=== PATIENT | male | born 1965 | race Caucasian/White ===

== ENCOUNTER 2016-10-17 10:59 | Observation (INO) | payer BC, OTHER ==
[2016-10-17] MEDS ORDERED: Aspirin Low Dose CHEW TAB* 81 MG PO ONE (11:15)
--- NOTE | 2016-10-17 11:56 | RAD ---
INDICATION: Chest pain. LEFT arm pain and tingling. Question pneumonia or CHF. COMPARISON: April 15, 2013 CT abdomen. TECHNIQUE: Dual energy PA and routine lateral views of the chest were obtained. REPORT: Clear lungs and pleural spaces. Negative for pneumothorax. The heart, pulmonary vasculature, and mediastinal contours are unremarkable. Anterior cervical fusion hardware noted. IMPRESSION: No evidence for acute intrathoracic disease.
[2016-10-17 12:04] LABS: Hematocrit 51 % (42-52); Hemoglobin 17.4 g/dl (14.0-18.0); Mean Corpuscular HGB Conc 34 g/dl (31-36); Mean Corpuscular Hemoglobin 32 pg (27-31); Mean Corpuscular Volume 95 fL (80-94); Mean Platelet Volume 9 um3 (7.4-10.4); Red Blood Count 5.39 10^6/ul (4.0-5.4); Red Cell Distribution Width 13 % (10.5-15); White Blood Count 6.7 10^3/ul (3.5-10.8)
[2016-10-17 12:13] LABS: Comments Flag Yes
[2016-10-17 12:15] LABS: Add Diff/Slide Review? Slide Review Added
[2016-10-17 12:31] LABS: ALT 35 U/L (7-52); Alkaline Phosphatase 69 U/L (34-104); BUN/Creatinine Ratio 8.1 (8-20); Blood Urea Nitrogen 8 mg/dL (6-24); CO2 Carbon Dioxide 28 mmol/L (22-32); Chloride 96 mmol/L (101-111); EGFR African American 102.9 (>60); Glucose 89 mg/dL (70-100); Sodium 133 mmol/L (133-145)
[2016-10-17 12:33] LABS: Troponin I 0.01 ng/mL (<0.04)
[2016-10-17 12:57] LABS: Anion Gap 9 mmol/L (2-11)
[2016-10-17] MEDS ORDERED: Ondansetron INJ* 2 MG/ML VIAL IV PRN (14:02)
[2016-10-17] MEDS ORDERED: Ketorolac INJ* 15 MG/ML 1 ML VIAL IV PUSH PRN (14:03)
[2016-10-17] MEDS ORDERED: Morphine INJ* 2 MG/ML 1 ML SYRINGE IV PRN (14:03)
--- NOTE | 2016-10-17 17:08 | HP ---
CC: Dr. Briscoe's replacement at [place]* HISTORY AND PHYSICAL: DATE OF ADMISSION: 10/17/16 CHIEF COMPLAINT: Chest pain. HISTORY OF PRESENT ILLNESS: The patient is a 51-year-old gentleman, who presents to [facility] with chief complaint of chest pain that he has had on and off for months now. However, it has become much worse over the last several days. He feels like something is squeezing in his left side of his chest. At its worst, it is about 8/10 in severity. His left arm can hurt as well from the pain. He has no nausea or vomiting. He denies any clamminess or sweating. He got aspirin in the ER, but that did not help either. The pain actually gets worse initially when he presses on it, but then there is little relief. The pain also improves when he moves his arms around. PAST MEDICAL HISTORY: He has no significant past medical history. MEDICATIONS: He is on no medications. ALLERGIES: He has no known drug allergies. FAMILY HISTORY: Significant for father pancreatic cancer and had heart attack in his early 40s, and mother is alive at 80, has diabetes, and had coronary artery bypass graft surgery. SOCIAL HISTORY: The patient does smoke 1 pack a day, but denies need for nicotine replacement. He drinks 6 to 8 beers a day. No recreational drug use. He is a building maintenance worker. He is . He has 3 children, 2 step children. His , Jocelin Cole, is his healthcare proxy. REVIEW OF SYSTEMS: A 14-point review of systems was completed with the patient. All pertinent positives and negative are in the history of present illness, otherwise it is negative. PHYSICAL EXAMINATION GENERAL: Pleasant gentleman lying in bed, in no acute distress. VITAL SIGNS: Blood pressure 145/76, pulse ox 97%, respiratory rate 13 breaths per minute, heart rate 81 beats per minute, temperature 99.8 degrees. HEENT: Normocephalic, atraumatic. Pupils are equal, round, and reactive to light. Moist mucous membranes. NECK: Supple. No JVD, bruits, palpable thyroid, or lymphadenopathy. CHEST: Clear to auscultation and percussion bilaterally. CARDIOVASCULAR: S1, S2 appreciated. Regular rate and rhythm. No murmurs, gallops, or rubs. ABDOMEN: Positive bowel sounds in all 4 quadrants. Soft, nontender, and nondistended. EXTREMITIES: No cyanosis, clubbing, or edema. +2 peripheral pulses bilaterally. NEUROLOGIC: Alert and oriented x3. Moves all extremities. SKIN: No rashes or abnormalities. DIAGNOSTIC STUDIES/LAB DATA: White count 6.7, hemoglobin 17.4, hematocrit 51, and platelets are 167. Sodium 133, potassium test not performed, chloride 96, CO2 28, BUN 8, creatinine 0.99, glucose 89. Troponin is 0.01. EKG shows normal sinus rhythm at 90 beats per minute, normal axis, no acute ST- T wave changes, possible right atrial enlargement. Chest x-ray shows no evidence of acute intrathoracic disease. ASSESSMENT AND PLAN: 1. Chest pain. I doubt that the patient has been having coronary artery disease and angina constantly now for several months. Also, it radiates typical in a sense that it is reproducible and improved by waving his arms. Nevertheless, he does have some risk factors with the family history and smoking and it is in the left side, sometimes radiating into left arm. I do not think he has got pericarditis based on the EKG, but it is somewhat reproducible and pleuritic. I will try some Toradol on the patient while awaiting his troponins and stress test in the a.m. Also, morphine p.r.n. as he appears quite uncomfortable. We will check a lipid profile in the morning. 2. Tobacco abuse. The patient declines the need for nicotine replacement, but obviously we offered . 3. FEN. Heart healthy diet with no caffeine at all. Will be n.p.o. 4. DVT prophylaxis. Heparin subcu. 5. The patient is a full code. TIME SPENT: Over 75 minutes was spent on this H and P, more than 40 minutes of which was spent in direct [id number] contact with the patient in evaluation, physical exam, counseling, and coordination of care. [id number]/[facility] #: [id number] TAMEKA
[2016-10-17] MEDS: Heparin VIAL(*) 5000 UNITS/ML VIAL (FIVE THOUSAND) SUBCUT SCH (21:06)
[2016-10-18 05:02] LABS: HDL Cholesterol 67.3 mg/dL
[2016-10-18] MEDS: Heparin VIAL(*) 5000 UNITS/ML VIAL (FIVE THOUSAND) SUBCUT SCH (05:26)
[2016-10-18] MEDS ORDERED: Regadenoson* 0.4 MG/5 ML SYRINGE ONE (10:09)
--- NOTE | 2016-10-18 11:39 | RAD ---
Edited for charges. Indication: Chest pain. Myocardial perfusion scan was performed utilizing 1 day protocol. Rest myocardial perfusion was performed after intravenous injection of 10.1 mCi of technetium 99m tetrofosmin. Treadmill stress study was performed and the maximum heart rate achieved was 102% of the maximum predicted value. 25.5 mCi technetium 99m tetrofosmin was injected for the stress portion of the study. There is homogeneous distribution of the radiotracer throughout the left. There is no significant or reversible perfusion defects identified. The ejection fraction at stress is 70%. Evaluation of wall motion demonstrates no focal wall motion abnormality. IMPRESSION: No fixed or reversible perfusion defect is identified. Normal ejection fraction. ASSESSMENT: Low risk Based on imaging criteria from ACC/AHA 2002 Guideline Update for the Management of Patients With Chronic Stable Angina Table 23. Noninvasive Risk Stratification. Reference. MTDD
[2016-10-18 12:58] VITALS: BP 153/76
--- NOTE | 2016-10-19 01:16 | DS ---
CC: [facility], Dr. Briscoe* DISCHARGE SUMMARY: DATE OF ADMISSION: 10/17/16 DATE OF DISCHARGE: 10/18/16 PRIMARY CARE PROVIDER: Dr. Briscoe. DISCHARGE DIAGNOSES: 1. Chest pain with point tenderness in the left upper chest, most likely due to muscle strain. 2. History of gastroesophageal reflux disease. MEDICATIONS AT DISCHARGE: Include: 1. Ibuprofen 600 mg p.o. every 8 hours for pain. 2. Tums one tablet p.o. b.i.d. for gastroesophageal reflux symptoms. FOLLOWUP: With Dr. Briscoe in 4 to 7 days. LABORATORY DATA AND STUDIES PERFORMED DURING THE HOSPITAL STAY: Included: The patient's D-dimer was below 200. Lipid profile showed triglycerides of 119, cholesterol of 189, LDL of 98, and HDL of 67. Troponins throughout the patient's hospital stay was 0 to 0.01. Brain natriuretic peptide was 16. Otherwise, laboratory data was unchanged from admission. Nuclear medicine cardiac stress test documented on 10/18/16 showed low risk with EF of 70%. There were no fixed or reversible perfusion defects. The patient was advised to avoid caffeinated beverages as well as alcohol and tobacco cessation was also encouraged during his discharge consultation. HOSPITALIZATION COURSE: Madan Cole is a 51-year-old male who has history of two months of chest pain. He actually has a couple of complaints related to his chest. He stated that he has gastroesophageal reflux disease and he feels a sensation of esophageal burning and burning sensation in his epigastric area. In addition to that, he had episodes of spasm-like pain noted in the epigastrium radiating to the left upper extremity. In addition to that, he also has had, for the past 2 months, a tender area in the left upper chest. That area gets worse with movement and with deep breathing. The patient was placed on overnight observation. The patient's D- dimer was negative. His EKG was unremarkable and cardiac markers were within normal limits. He underwent a cardiac stress test, which showed low risk and EF of 70%. At this point, the suspicion is that the patient most likely has muscle strain and tenderness in the left upper chest related to that, as well as gastroesophageal reflux disease symptoms. He was advised to use Tums and ibuprofen on a p.r.n. basis. The patient was advised to avoid caffeinated beverages, which right now he states that he drinks "two pots of coffee a day." He also smokes a pack per day and drinks a 6-pack of beer a day. Smoking cessation and alcohol cessation was encouraged in this patient at discharge. PHYSICAL EXAMINATION: At the time of discharge, blood pressure of 144/76, heart rate of 63 and regular, respiratory rate 16, oxygen saturation 98% on room air, temperature 97.7. General: This is a very pleasant 51-year-old male who is in no acute distress. Alert, awake, and oriented x3. HEENT: Head atraumatic, normocephalic. Eyes: Pupils equal and reactive to light and accommodation. Oropharynx clear. Mucosa moist. Neck: Supple. No JVD, no bruit bilaterally. Cardiovascular: Regular rate and rhythm. No murmur. Respiratory: Clear to auscultation bilaterally. Abdomen: Soft, nontender. Bowel sounds present in all 4 quadrants. Extremities: There is no edema. Pulses +2 bilaterally. No clubbing or cyanosis. On evaluation of the skin, no ecchymotic areas or rashes noted. Neuro evaluation, speech clear. Cranial nerves II through XII grossly intact. Motor strength is 5/5 bilaterally. Please note that this is a short summary of the patient's hospitalization. Please refer to further medical records for details. [id number]/[facility] #: [id number] MTDD
== END 2016-10-18 13:26 | disposition home or self-care (01) ==
LOC: ED 10:59 → MEDTELE 14:03
PROVIDERS: ADMIT Internal Medicine; ATTEND Internal Medicine
DX: R07.9 Chest pain, unspecified (principal); M79.603 Pain in arm, unspecified; K21.9 Gastro-esophageal reflux disease without esophagitis; F17.210 Nicotine dependence, cigarettes, uncomplicated
CPT/HCPCS: 36415; 71020; 78452; 80053; 80061; 83605; 83880; 84484; 85025; 85379; 93005; 93017; 96372; 96374; 99285; A9270-GY; A9502; G0378; J1644; J1885; J2785

== ENCOUNTER 2018-05-21 12:56 | Emergency (ER) | payer BC ==
[2018-05-21 14:39] VITALS: BP 177/100
--- NOTE | 2018-05-21 14:59 | ED ---
Lower Extremity - HPI Summary HPI Summary: 53 year old presents with left ankle pain since last night. He states that he twisted his ankle getting out of bed. he felt a snap. He is having difficulty ambulating. no numbness or tingling. he previously broke this ankle. no knee pain. no other injury. hx of htn. - History of Current Complaint Chief Complaint: UCLowerExtremity Stated Complaint: ANKLE INJURY Time Seen by Provider: 05/21/18 14:44 Pain Intensity: 10 - Allergies/Home Medications Allergies/Adverse Reactions: Allergies Allergy/AdvReac Type Severity Reaction Status Date / Time No Known Allergies Allergy Verified 05/21/18 14:39 PMH/Surg Hx/FS Hx/Imm Hx Endocrine/Hematology History: Denies: Hx Diabetes, Hx Thyroid Disease Cardiovascular History: Reports: Hx Angina Denies: Hx Coronary Artery Disease, Hx Hypercholesterolemia, Hx Hypertension , Hx Myocardial Infarction, Hx Valvular Heart Disease Respiratory History: Denies: Hx Asthma, Hx Chronic Obstructive Pulmonary Disease (COPD) GI History: Reports: Other GI Disorders - inguinal hernias, repaired ~ 2013 Denies: Hx Ulcer Musculoskeletal History: Reports: Hx Arthritis - RIGHT HIP- STEROID SHOT IN 2 WEEKS AGO, Other Musculoskeletal History - NECK SURGERY 12 YEARS AGO FOR BONE SPURS Sensory History: Reports: Hx Contacts or Glasses - READING Denies: Hx Hearing Aid Opthamlomology History: Reports: Hx Contacts or Glasses - READING Neurological History: Reports: Hx Migraine - last one year ago Psychiatric History: Reports: Hx Anxiety, Hx Depression - NO MEDICATION AT THIS TIME - Surgical History Surgery Procedure, Year, and Place: 12YEARS AGO- NECK SURGERY-[facility] Hx Anesthesia Reactions: No Infectious Disease History: No Infectious Disease History: Denies: Hx Hepatitis, Hx Human Immunodeficiency Virus (HIV), Traveled Outside the [place] in Last 30 Days - Family History Known Family History: Positive: Cardiac Disease - Mom and Dad - Social History Alcohol Use: Weekly Alcohol Amount: 6-8 PER WEEK Substance Use Type: Reports: None Smoking Status (MU): Current Every Day Smoker Type: Cigarettes Amount Used/How Often: 1/2 PPD X 8 YEARS Length of Time of Smoking/Using Tobacco: 20 years total, did stop for 16 years Have You Smoked in the Last Year: Yes Review of Systems Negative: Fever Negative: Chest Pain Negative: Shortness Of Breath Positive: Myalgia - left ankle pain All Other Systems Reviewed And Are Negative: Yes Physical Exam Triage Information Reviewed: Yes Vital Signs On Initial Exam: Initial Vitals Temp Pulse Resp BP Pulse Ox 100 F 81 18 177/100 98 05/21/18 14:26 05/21/18 14:26 05/21/18 14:26 05/21/18 14:05/21/18 14:26 Vital Signs Reviewed: Yes Appearance: Positive: Well-Appearing Skin: Positive: Warm, Dry Head/Face: Positive: Normal Head/Face Inspection Eyes: Positive: Normal, Conjunctiva Clear ENT: Positive: Pharynx normal Respiratory/Lung Sounds: Positive: Clear to Auscultation, Breath Sounds Present Cardiovascular: Positive: Normal, RRR Musculoskeletal: Positive: Limited @ - left ankle, Other - tenderness lateral malleolus left ankle, good pulses, capillary refill<2 secs, able to wiggle toes Neurological: Positive: Normal Psychiatric: Positive: Normal Diagnostics - Vital Signs Vital Signs Temp Pulse Resp BP Pulse Ox 05/21/18 14:26 100 F 81 18 177/100 98 - Laboratory Lab Statement: Any lab studies that have been ordered have been reviewed, and results considered in the medical decision making process. - Radiology ankle Radiology Interpretation Completed By: Radiologist Summary of Radiographic Findings: IMPRESSION: SOFT TISSUE SWELLING, NO FRACTURE IS SEEN. Lower Extremity Course/Dx - Course Course Of Treatment: 53 year old presents with left ankle pain since last night. He states that he twisted his ankle getting out of bed. he felt a snap. He is having difficulty ambulating. no numbness or tingling. he previously broke this ankle. no knee pain. no other injury. hx of htn. on exam has tenderness lateral malleolus. neurovascular intact. xray shows no fracture. has history of htn so can follow up with primary about elevated blood pressure. told to practice JYOTI. patient understand and agrees with plan. - Diagnoses Differential Diagnosis/HQI/PQRI: Positive: Fracture (Closed), Sprain, Strain Provider Diagnoses: Left ankle sprain, Hypertension Discharge - Sign-Out/Discharge Documenting (check all that apply): Patient Departure All imaging exams completed and their final reports reviewed: Yes - Discharge Plan Condition: Good Disposition: HOME Patient Education Materials: Ankle Sprain (DC) Forms: *Work Release Referrals: Nikki Paige MD [Primary Care Provider] - Additional Instructions: Stay off ankle as much as possible Ice, elevate, keep in LUCIUS as needed Ibuprofen or tyenlol every 6 hours for pain Follow up with primary if no improvement Return to ED if develop or any new or worsening symptoms - Billing Disposition and Condition Condition: GOOD Disposition: Home
== END 2018-05-21 15:20 | disposition home or self-care (01) ==
LOC: UCEAST 12:56
DX: S93.402A Sprain of unspecified ligament of left ankle, initial encounter (principal); X50.1XXA Overexertion from prolonged static or awkward postures, initial encounter; Y92.003 Bedroom of unspecified non-institutional (private) residence as the place of occurrence of the external cause; I10 Essential (primary) hypertension; F17.210 Nicotine dependence, cigarettes, uncomplicated
CPT/HCPCS: 99212; G0463